=== PATIENT | female | born 1990 | race Caucasian/White ===

== ENCOUNTER 2018-09-08 11:30 | Emergency (ER) | payer MEDICAID ==
[~2018-09-08] VITALS: Ht 165.1 cm; Wt 64.0 kg
[2018-09-08] MEDS ORDERED: LORAZEPAM 2MG/ML CPJ IM STA (12:14)
[2018-09-08] MEDS ORDERED: HALOPERIDOL LACTATE 5MG/ML VIAL IM STA (12:14)
[2018-09-08] MEDS ORDERED: HALOPERIDOL LACTATE 5MG/ML VIAL IM ONE (13:15)
[2018-09-08 14:33] LABS: BASOPHILS % 0.5 % (0.0-2.0); EOSINOPHILS % 0.2 % (0.0-5.0); HEMATOCRIT. 33.2 % (36.0-48.0); HEMOGLOBIN. 10.8 g/dL (12.0-16.0); LYMPHOCYTES % 14.9 % (20.0-50.0); MEAN CORPUSCULAR HEMOGLOBIN 29.6 pg (28.0-32.0); MEAN CORPUSCULAR VOLUME 90.5 fL (81.0-99.0); MEAN PLATELET VOLUME 8.6 fl (7.4-10.4); MONOCYTES % 8.5 % (2.0-8.0); NEUTROPHILS % 75.9 % (40.0-76.0); PLATELET 294 x1000/uL (130-400); RED BLOOD CELL COUNT 3.67 mill/uL (4.2-5.4); RED CELL DISTRIBUTION WIDTH 14.6 % (11.6-14.6)
[2018-09-08 14:40] LABS: CHLORIDE 106 mEq/L (98-107)
[2018-09-08 14:44] LABS: ETHANOL BLOOD < 10 mg/dL
[2018-09-08 15:28] LABS: CLARITY URINE CLEAR (CLEAR); COLOR URINE YELLOW (YELLOW); KETONES URINE 1+ (NEGATIVE); LEUKOCYTE ESTERASE URINE TRACE (NEGATIVE); NITRITE URINE NEGATIVE (NEGATIVE); OCCULT BLOOD URINE NEGATIVE (NEGATIVE); PROTEIN URINE NEGATIVE (NEGATIVE); SPECIFIC GRAVITY URINE 1.017 (1.005-1.030); UROBILINOGEN URINE 0.2 E.U./dL (0.2-1.0)
[2018-09-08 15:38] LABS: *BARBITURATES SCREEN URINE NEGATIVE (NEGATIVE); *BENZODIAZEPINES SCREEN URINE NEGATIVE (NEGATIVE); *COCAINE SCREEN URINE NEGATIVE (NEGATIVE); METHADONE URINE SCREEN NEGATIVE (NEGATIVE)
[2018-09-08 15:39] LABS: OPIATES URINE SCREEN NEGATIVE (NEGATIVE); PHENCYCLIDINE URINE SCREEN NEGATIVE (NEGATIVE)
[2018-09-08 15:46] LABS: *AMPHETAMINES SCREEN URINE PRESUMTIVE POSITIVE (NEGATIVE); CANNABINOID URINE SCREEN PRESUMTIVE POSITIVE (NEGATIVE)
[2018-09-09 11:50] VITALS: BP 110/62
== END 2018-09-09 14:11 | disposition home or self-care (01) ==
LOC: ER 12:37 → EDBD 12:37 → ER 09-09 14:11
DX: T40.991A Poisoning by other psychodysleptics [hallucinogens], accidental (unintentional), initial encounter (principal); G92 Toxic encephalopathy; F15.10 Other stimulant abuse, uncomplicated; F17.210 Nicotine dependence, cigarettes, uncomplicated; Z78.1 Physical restraint status; Z59.0 Homelessness; Y92.488 Other paved roadways as the place of occurrence of the external cause
CPT/HCPCS: 36415; 80053; 80305; 80307; 80329; 81003; 81025; 85025; 96372; 99283; J1630; J2060; Z7610; A4315

== ENCOUNTER 2023-06-28 18:25 | Emergency (ER) | payer MEDICAID ==
[~2023-06-28] VITALS: Ht 162.6 cm; Wt 68.0 kg
[2023-06-28 18:46] VITALS: O2SAT 100
[2023-06-28] MEDS ORDERED: TETRACAINE 0.5% OPHTH DROPS 4ML RIGHTEYE ONE (19:00)
[2023-06-28] MEDS ORDERED: FLUORESCEIN SODIUM 1MG/STRIP RIGHTEYE ONE (19:00)
[2023-06-28] MEDS ORDERED: POLY10DR RIGHTEYE (20:28)
[2023-06-28] MEDS ORDERED: GUAI600T44 MT (20:28)
[2023-06-28 21:37] VITALS: BP 126/74; PULSE 67; RESP 18; TEMP 97.2
== END 2023-06-28 21:38 | disposition home or self-care (01) ==
LOC: ER 18:25
DX: H10.9 Unspecified conjunctivitis (principal); J06.9 Acute upper respiratory infection, unspecified; F15.10 Other stimulant abuse, uncomplicated
CPT/HCPCS: 99282; 99283